=== PATIENT | male | born 1960 | race Caucasian/White ===

== ENCOUNTER 2016-09-29 13:44 | Inpatient (IN) | payer OTHER ==
[~2016-09-29] VITALS: Ht 175.3 cm; Wt 72.6 kg
--- NOTE | ~2016-09-29 | 2DMMODE ---
[facility] [address] [place] [address] 2 D/M-MODE ECHOCARDIOGRAM Name: VINAY LAUGHLIN Room #: 215-P ADM IN ..#: [id number] Admission: 09/29/16 Attend Phys: Doc Mccord Discharge: Date of : 62 Date of Service: 10/01/16 0955 Report #: [id number] THIS REPORT FOR: //name// APPROVED REPORT Study performed: 10/01/2016 09:16:42 EXAM: Comprehensive 2D, Doppler, and color-flow Echocardiogram Patient Location: Bedside Room #: 215 Status: routine Other Information Study Quality: Adequate/limited mobility Indications Syncope 2D Dimensions RVDd: 39.44 mm LVEF(%): 67.16 (>50%) IVSd: 10.23 (7-11mm) LVOT Diam: 21.37 (18-24mm) LVDd: 49.28 mm PWd: 9.76 (7-11mm) Ascending Ao: 34.20 (22-36mm) LVDs: 30.87 (25-40mm) Aortic Root: 36.14 mm Lugo's LVEF: 67.16 % Volumes Left Atrial Volume (Systole) Single Plane 4CH: 29.23 mL Single Plane 2CH: 48.52 mL LA ESV Index: 23.00 mL/m2 Aortic Valve AoV Peak Denys.: 1.47 m/s AO Peak Gr.: 8.70 mmHg LVOT Max P.34 mmHg LVOT Max V: 1.04 m/s KELLY Vmax: 2.53 cm2 Mitral Valve E/A Ratio: 1.6 MV Decel. Time: 168.83 ms MV E Max Denys.: 1.04 m/s MV A Denys.: 0.65 m/s MV PHT: 48.96 ms IVRT: 87.66 ms [facility] [place] [address] 2 D/M-MODE ECHOCARDIOGRAM Name: VINAY LAUGHLIN Room #: 215-P [facility] IN ..#: [id number] Admission: 09/29/16 Attend Phys: Doc Mccord Discharge: Date of : 62 Date of Service: 10/01/16 0955 Report #: [id number] Pulmonary Valve PV Peak Denys.: 0.86 m/s PV Peak Gr.: 2.99 mmHg Tricuspid Valve TR Peak Denys.: 2.54 m/s RAP Estimate: 5.00 mmHg TR Peak Gr.: 25.87 mmHg PA Pressure: 31.00 mmHg Left Ventricle The left ventricle is normal size. There is normal LV segmental wall motion. There is normal left ventricular wall thickness. The left ventricular systolic function is normal. LVEF is 55-60%. The left ventricular diastolic function is normal. Right Ventricle The right ventricle is normal size. The right ventricular systolic function is normal. Atria The left atrium size is normal. The right atrium size is normal. Aortic Valve The aortic valve is normal in structure. No aortic regurgitation is present. There is no aortic valvular stenosis. Mitral Valve The mitral valve is normal in structure. Trace mitral regurgitation. No evidence of mitral valve stenosis. Tricuspid Valve The tricuspid valve is normal in structure. There is trace tricuspid regurgitation. The right atrial pressure is estimated at 5 mmHg. There is borderline mild pulmonary hypertension with an estimated PAP of 31mmHg. Pulmonic Valve The pulmonary valve is normal in structure. Trace pulmonic regurgitation. Great Vessels The aortic root is normal in size. The ascending aorta is normal in size. IVC is normal in size and collapses >50% with inspiration. [address] [address] 2 D/M-MODE ECHOCARDIOGRAM Name: VINAY LAUGHLIN [place] Room #: 215-P [facility] IN .R.#: [id number] Admission: 09/29/16 Attend Phys: Doc Mccord Discharge: Date of : 62 Date of Service: 10/01/16 0955 Report #: [id number] Pericardium There is no pericardial effusion. <Conclusion> The left ventricle is normal size. The left ventricular systolic function is normal. The right ventricle is normal size. The left atrium size is normal. The right atrium size is normal. The aortic valve is normal in structure. Trace mitral regurgitation. There is trace tricuspid regurgitation. The right atrial pressure is estimated at 5 mmHg. There is borderline mild pulmonary hypertension with an estimated PAP of 31mmHg. There is no pericardial effusion. <ELECTRONICALLY SIGNED> By: Rell Allen MD 10/01/1655 4 4 Rell Allen MD /INF
--- NOTE | ~2016-09-29 | EKG ---
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
[2016-09-29 13:55] VITALS: BP 127/77
[2016-09-29] MEDS ORDERED: OMEPRAZOLE20 M2 PO (14:02)
[2016-09-29] MEDS ORDERED: ASPIR 8181 MG PO (14:02)
[2016-09-29] MEDS ORDERED: LISINOPRIL10 MG PO (14:03)
[2016-09-29] MEDS ORDERED: CELEXA10 MG PO (14:03)
[2016-09-29] MEDS ORDERED: ELIQUIS2.5 MG PO (14:03)
[2016-09-29] MEDS ORDERED: LIPITOR 20 MG T20 M1 PO (14:03)
[2016-09-29] MEDS ORDERED: HYDROCODONE-APA1 TA1 PO (14:03)
[2016-09-29] MEDS ORDERED: XANAX 0.25 MG0.25 MG PO (14:03)
[2016-09-29 14:48] LABS: ANION GAP 6 mmol/L (7-16); BUN 22 mg/dL (7-18); CALCIUM 9.4 mg/dL (8.5-10.1); CHLORIDE 103 mmol/L (98-107); CO2 28 mmol/L (21-32); CREATININE 1.2 mg/dL (0.7-1.3); GLUCOSE 121 mg/dL (74-106); POTASSIUM 4.2 mmol/L (3.5-5.1); SODIUM 137 mmol/L (136-145)
[2016-09-29 14:52] LABS: INR 1.1; PROTIME 11.1 Seconds (9.3-11.4)
[2016-09-29 14:56] LABS: TROPONIN-I < 0.04 ng/mL (<0.04-0.07)
[2016-09-29 15:03] LABS: HEMATOCRIT 38.7 % (42.0-52.0); HEMOGLOBIN 12.9 gm/dL (14.0-18.0); MCH 32.8 pg (26.0-34.0); MCHC 33.3 g/dL (28.0-37.0); MCV 98.6 fL (80.0-100.0); PLATELET COUNT 204 thou/uL (150-400); RBC 3.92 mil/uL (4.50-6.00); RDW 13.5 % (10.5-14.5); WBC 20.5 thou/uL (4.0-11.0)
[2016-09-29 15:05] LABS: MANUAL DIFF YES
[2016-09-29 15:26] LABS: ANISOCYTOSIS 1+; TOTAL CELL COUNT 100
[2016-09-29 16:34] LABS: ABG SAMPLE TYPE ARTERIAL; BE(vivo) 1.7 mmol/L (-2 to +3); HCO3 26.8 mmol/L (22.0-26.0); LACTATE 1.32 mmol/L (0.5-2.0); O2(CT) 16.7 mL/dL (15.0-23.0); O2Hb 85.3 % (92.0-98.0); PCO2 43.8 mmHg (35.0-45.0); pH 7.404 (7.360-7.450); tCO2 28.1 mmol/L (24.0-30.0)
[2016-09-29 16:35] LABS: PO2 55.7 mmHg (80.0-100.0); STICK SITE R.RADIAL
[2016-09-29 17:15] VITALS: BP 128/76
[2016-09-29 17:23] VITALS: BP 129/82
[2016-09-29 20:00] VITALS: BP 131/89
[2016-09-29 23:24] VITALS: BP 126/77
[2016-09-30 02:54] LABS: ABSOLUTE NEUTROPHILS 7.8 thou/uL (1.4-8.2); BASOPHILS 0.3 % (0.0-2.0); EOSINOPHILS 1.2 % (0.0-3.0); HEMATOCRIT 32.9 % (42.0-52.0); HEMOGLOBIN 11.3 gm/dL (14.0-18.0); LYMPHOCYTES 20.5 % (24.0-44.0); MCH 33.2 pg (26.0-34.0); MCHC 34.2 g/dL (28.0-37.0); MCV 97.3 fL (80.0-100.0); MONOCYTES 9.7 % (1.0-8.0); PLATELET COUNT 164 thou/uL (150-400); POLYS 68.3 % (36.0-66.0); RBC 3.39 mil/uL (4.50-6.00); RDW 12.9 % (10.5-14.5); WBC 11.5 thou/uL (4.0-11.0)
[2016-09-30 02:57] LABS: MANUAL DIFF NO
[2016-09-30 03:05] LABS: ANION GAP 5 mmol/L (7-16); BUN 21 mg/dL (7-18); CALCIUM 8.1 mg/dL (8.5-10.1); CHLORIDE 104 mmol/L (98-107); CO2 29 mmol/L (21-32); GLUCOSE 111 mg/dL (74-106); MAGNESIUM 1.7 mg/dL (1.8-2.4); POTASSIUM 3.9 mmol/L (3.5-5.1); SODIUM 138 mmol/L (136-145); TROPONIN-I < 0.04 ng/mL (<0.04-0.07)
[2016-09-30 03:14] VITALS: BP 126/69
[2016-09-30 07:39] VITALS: BP 128/83
[2016-09-30 12:01] VITALS: BP 120/70
[2016-09-30 16:18] VITALS: BP 116/70
[2016-09-30 20:07] VITALS: BP 122/66
[2016-10-01 04:05] VITALS: BP 121/68
[2016-10-01 04:05] LABS: HEMATOCRIT 31.1 % (42.0-52.0); HEMOGLOBIN 10.5 gm/dL (14.0-18.0); MCH 33.1 pg (26.0-34.0); MCHC 33.8 g/dL (28.0-37.0); MCV 97.8 fL (80.0-100.0); RBC 3.18 mil/uL (4.50-6.00); RDW 13.4 % (10.5-14.5)
[2016-10-01 07:46] VITALS: BP 122/69
[2016-10-01 11:52] VITALS: BP 120/74
[2016-10-01 19:31] VITALS: BP 132/79
[2016-10-01 23:26] VITALS: BP 125/72
[2016-10-02 03:23] VITALS: BP 147/94
[2016-10-02 07:35] VITALS: BP 128/87
[2016-10-02] MEDS ORDERED: HYDROCODONE-APA1 TA1 PO (10:46)
[2016-10-02] MEDS ORDERED: LIDODERM 5%1 PATCH TRANSDERM (10:47)
[2016-10-02 11:30] VITALS: BP 134/79
[2016-10-02 12:42] VITALS: BP 134/79
== END 2016-10-02 14:09 | disposition home or self-care (01) | DRG 923 ==
LOC: ER 13:44 → 2N 15:08 → EROBS 15:08 → 2N 17:01
PROVIDERS: Emergency Medicine; Internal Medicine; Internal Medicine Pulmonary Disease
PROC: 2W3DX1Z Immobilization of Left Lower Arm using Splint (ICD-10-PCS; principal; 2016-09-29)
DX: T67.5XXA Heat exhaustion, unspecified, initial encounter (principal); S27.0XXA Traumatic pneumothorax, initial encounter; S22.42XA Multiple fractures of ribs, left side, initial encounter for closed fracture; S52.502A Unspecified fracture of the lower end of left radius, initial encounter for closed fracture; J98.11 Atelectasis; S27.329A Contusion of lung, unspecified, initial encounter; I10 Essential (primary) hypertension; D72.829 Elevated white blood cell count, unspecified; F17.210 Nicotine dependence, cigarettes, uncomplicated; S00.91XA Abrasion of unspecified part of head, initial encounter; S00.93XA Contusion of unspecified part of head, initial encounter; K21.9 Gastro-esophageal reflux disease without esophagitis; D64.9 Anemia, unspecified; G89.29 Other chronic pain; M25.569 Pain in unspecified knee; E78.00 Pure hypercholesterolemia, unspecified; J44.9 Chronic obstructive pulmonary disease, unspecified; E86.0 Dehydration; I73.9 Peripheral vascular disease, unspecified; W10.8XXA Fall (on) (from) other stairs and steps, initial encounter; Z88.8 Allergy status to other drugs, medicaments and biological substances; Z79.82 Long term (current) use of aspirin; Z79.899 Other long term (current) drug therapy; Z95.820 Peripheral vascular angioplasty status with implants and grafts; Z87.442 Personal history of urinary calculi; Z71.6 Tobacco abuse counseling; Z90.49 Acquired absence of other specified parts of digestive tract; Y99.8 Other external cause status; Y93.89 Activity, other specified; Y92.098 Other place in other non-institutional residence as the place of occurrence of the external cause; X32.XXXA Exposure to sunlight, initial encounter; Y93.H2 Activity, gardening and landscaping; Y92.096 Garden or yard of other non-institutional residence as the place of occurrence of the external cause; Z23 Encounter for immunization
CPT/HCPCS: 10081